=== PATIENT | female | born 1940 | race Caucasian/White ===

== ENCOUNTER 2019-05-04 12:27 | Day surgery (SDC) | payer MEDICARE, OTHER ==
[~2019-05-04] VITALS: Ht 157.5 cm; Wt 74.5 kg
--- NOTE | ~2019-05-04 | OP ---
PATIENT NAME: FABIANA GRANGER MEDICAL RECORD: [id number] LOCATION:D.OPS ADMISSION DATE: SURGEON: TY POLLOCK DO DATE OF OPERATION: 05/04/2019 PROCEDURE: EGD and push enteroscopy with fecal transplant. SCOPE: Olympus video pediatric colonoscope. MEDICATIONS: Propofol 120 mg IV per anesthesia. ESTIMATED BLOOD LOSS: None. COMPLICATIONS: None. FINDINGS: Informed consent was given. The patient was made comfortable with the above medication. After reaching an adequate level of sedation by slow IV push, the patient was placed on her left side. The endoscope was advanced under direct visualization through the mouth to the jejunum. The esophagus appeared normal. At the GE junction, there were mild changes consistent with LA class A reflux-induced esophagitis. The endoscope was advanced into the stomach which appeared normal throughout. Retroflexion was performed and there was a small sliding hiatal hernia. The endoscope was then advanced beyond the pylorus into the duodenum, which appeared normal throughout. The endoscope was advanced further down into the jejunum. At this point, the [employer] stool was prepared and 30 mL was instilled into the jejunum. This was followed by flush with 50 mL of sterile water to clear the endoscope channel of the stool. The endoscope was then withdrawn from the patient. The patient tolerated the procedure well and there were no complications. IMPRESSION: 1. LA class A reflux-induced esophagitis. 2. Small sliding hiatal hernia. 3. Status post fecal transplant with 30 mL of [employer] stool. PLAN AND RECOMMENDATIONS: 1. Discharge home when recovery parameters are met. 2. Continue current diet and medications. 3. Follow up in the GI clinic in 1 month's time to assess response to transplant. TRANSINT:[id number] Voice Confirmation ID: [id number] DOCUMENT ID: [id number] TY POLLOCK DO CC: [id number] DICTATION DATE: 05/04/19 1457 MATERIAL DAMAGE ADJUSTER: 05/04/19 2233 [facility] 05/04/19 [place] [id number]
[2019-05-04 13:03] LABS: HEMATOCRIT 42.5 % (36.0-48.0); HEMOGLOBIN 14.2 g/dL (12-16); MCH 30.9 pg (26.0-34.0); MCHC 33.4 g/dL (31.0-37.0); MCV 92.4 fL (80.0-100.0); MEAN PLATELET VOLUME 8.8 fL (7.4-10.4); RBC 4.6 10x6/uL (4.00-5.40); RDW 12.7 % (11.5-14.5); WBC 9.4 10x3/uL (4.8-10.8)
[2019-05-04 13:48] VITALS: BP 158/77; Ht 157.5 cm; Wt 74.5 kg
[2019-05-04] MEDS ORDERED: AMBIEN5 MG PO (14:01)
[2019-05-04] MEDS ORDERED: MELATONIN 3 MG1 TAB PO (14:01)
[2019-05-04] MEDS ORDERED: TRAZODONE HCL150 MG PO (14:01)
[2019-05-04] MEDS ORDERED: SYNTHROID75 MCG PO (14:01)
[2019-05-04] MEDS ORDERED: LOZOL1.25 MG PO (14:01)
[2019-05-04] MEDS ORDERED: IMODIUM2 MG PO (14:02)
[2019-05-04] MEDS ORDERED: MAGNESIUM OXID250 MG (14:02)
[2019-05-04] MEDS ORDERED: FAMOTIDINE10 MG PO (14:02)
[2019-05-04] MEDS ORDERED: K-TAB10 MEQ PO (14:02)
[2019-05-04] MEDS ORDERED: PROBIOTIC BLEN1 EACH (14:03)
[2019-05-04] MEDS ORDERED: MULTI-DAY VITAM1 TAB PO (14:03)
[2019-05-04] MEDS ORDERED: GABAPENTIN100 MG PO (14:03)
[2019-05-04] MEDS ORDERED: HYDROCODON-ACE1 EA10 PO (14:04)
--- NOTE | 2019-05-04 14:40 | NUR ---
[facility] ID#[id number]
--- NOTE | 2019-05-04 15:40 | NUR ---
PT DC INSTRUCTIONS REVIEWED AT THIS TIME, PT VERBALIZES UNDERSTANDING. PT IV REMOVED AT THIS TIME, NO REDNESS OR SWELLING NOTED AT AT THIS TIME.
--- NOTE | 2019-05-04 15:50 | NUR ---
PT LEAVING OPS AT THIS TIME, VIA WC, NAD NOTED.
== END 2019-05-04 15:50 | disposition home or self-care (01) ==
LOC: D.OPS 12:27
PROVIDERS: Anesthesiology; ATTEND Internal Medicine Gastroenterology
DX: K52.831 Collagenous colitis (principal)